=== PATIENT | male | born 2000 | race Two or more races ===

== ENCOUNTER → 2025-01-29 | Emergency (ER) | payer OTHER ==
[~2025-01-29] VITALS: Ht 180.3 cm; Wt 93.0 kg
[~2025-01-29] MED LIST: ADVIL DUAL ACT1 EACH PO; CEFUROXIME500 MG PO; CHLORASEPTIC M1 EAC1 MM
[2025-01-29 13:34] VITALS: BP 114/65; O2SAT 99
== END | disposition home or self-care (01) ==
LOC: ER 13:14
DX: J02.9 Acute pharyngitis, unspecified (principal); R50.9 Fever, unspecified